=== PATIENT | male | born 1985 | race Caucasian/White ===

== ENCOUNTER 2019-09-25 06:10 | Emergency (ER) | payer SELFPAY ==
[2019-09-25 06:14] VITALS: BP 174/99; PULSE 88; RESP 16; TEMP 36.7; O2SAT 96; BMI 17.4
--- NOTE | 2019-09-25 06:20 | ED.DCSUM_ITS ---
History of Present Illness Chief Complaint: Dental Informant: Patient Onset: Days - 2 Context: Gradual Onset Timing: Continuous Quality: sore, swollen Location: left upper bicuspid, left face Current Severity: Moderate Maximum Severity: Moderate Worsened by: opening mouth, eating Relieved by: NSAIDs - improves some Associated Symptoms: Facial Swellling - no fevers. no purulent discharge. no rhinorrhea. Narrative: Patient has a cracked tooth and it started becoming painful and swollen within the last couple days. He went to urgent care and was prescribed penicillin, he has had 3 doses so far, but the swelling has become much worse in that amount of time so he presents for further evaluation. Denies any fevers or systemic symptoms. No appointment with a dentist yet. Past Medical History - Allergies and Home Meds Allergies/Adverse Reactions: Allergies No Known Allergies Allergy (Verified 09/25/19 06:12) Primary Care Physician: Dentist,Your [STAFF PHYSICIAN] - As soon as possible (see attached dental referral list if needed) Lives: Spouse/ Significant Other Review of Systems General: Denies: Chills, Fever, Sweats ENT: Reports: - - toothache. facial swelling. minor occasional bleeding from ?teeth vs. gums in affected area, left maxillary bicuspid.. Denies: Rhinorrhea, Sore throat Respiratory: Denies: Dyspnea Gastrointestinal: Denies: Nausea, Vomiting Skin: Denies: Rash, Wounds Physical Exam Vital Signs/Narrative: Vital Signs Temp Pulse Resp BP Pulse Ox 09/25/19 06:14 98.0 F 88 16 174/99 H 96 Inital Vital Signs reviewed: Yes General: Well nourished, Well developed, - - NAD Head: Normocephalic, Atraumatic ENT: Moist mucous membranes, No rhinorrhea Mouth/Throat: Dental abscess - limited eval; obvious diffuse left facial swelling especially in the maxillary area all the way up into the lower eyelid. No fluctuance. No cellulitis. No purulent rhinorrhea., Dentral fracture - #12, no blood or purulent discharge present, Tenderness on tooth percussion - #11, 12, Trismus. Negative for: Gingivitis Neck: Supple, No lymphadenopathy, - - No stridor or hoarseness Respiratory: No distress Skin: Normal color, No rash, No Trauma Neurological: Alert, Oriented x3, Cranial nerves II-XII grossly intact, Normal Strength, Normal Sensation, Normal Gait Psychological: Normal affect, Normal Mood Diagnostic/Tx/Re-eval - Medical Decision Making Dental Procedures: - - Abscess aspiration --topical Cetacaine spray placed on oral mucosa, followed by attempted maxillary/supraperiosteal abscess aspiration with 21-gauge needle; a scant amount of thick bloody material was aspirated. No complications. There is not a palpable discrete abscess present. He has a lot of swelling likely due to inflammation. There is no purulent nasal discharge. He does have trismus due to all the swelling but is able to open partially. A 21-gauge needle was directed in the supraperiosteal direction as noted above, small amount of pus was aspirated but I did direct the needle in several different areas and I was not able to aspirate any more, it was a painful procedure so we stopped there. We will change his penicillin to clindamycin, prescribe prescription analgesics which he was not given, and advised close outpatient dental follow-up. Dental resource list given. ED Disposition - Plan for ED Patient: Disposition: Home or Assisted Living Diagnosis: Dental abscess, Dental caries Instructions: Dental Abscess Prescriptions: Clindamycin [Cleocin] 300 mg PO 4X/DAY #80 cap Prescription Printed Hydrocodone Bitart/Apap 5-325 [[place] 5MG-325MG] 1 tab PO Q4H PRN PRN 2 Days #10 tab PRN Reason: Pain Prescription Printed Referrals: Dentist,Your [STAFF PHYSICIAN] - As soon as possible (see attached dental referral list if needed)
[2019-09-25] MEDS: HYDROcodone Bitartrate/Apap 5/325 Tablet PO (06:25)
[2019-09-25] MEDS: Tetracaine/Benzocaine/Butamben 1 APPLIC TOPICAL (06:26)
[2019-09-25 06:38] VITALS: BP 168/78; PULSE 79; RESP 16; O2SAT 96
[2019-09-25] MEDS: dexAMETHasone 4 MG Tablet 8 MG PO (06:42)
== END 2019-09-25 06:55 | disposition home or self-care (01) ==
LOC: ED 06:53
PROVIDERS: Emergency Provider Emergency Medicine
DX: K04.7 Periapical abscess without sinus (principal); K02.9 Dental caries, unspecified; K03.81 Cracked tooth
CPT/HCPCS: 41800; 99283